=== PATIENT | male | born 2000 | race Two or more races ===

== ENCOUNTER 2021-10-09 16:10 | Emergency (ER) | payer BC ==
[2021-10-09] MEDS ORDERED: TETANUS & DIPHTHERIA TOX,ADULT 0.5 ML VIAL ONE (16:48)
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
[2021-10-09 18:37] VITALS: BP 123/68; O2SAT 98
[2021-10-09 18:39] VITALS: TEMP 98.6
== END 2021-10-09 17:51 | disposition home or self-care (01) ==
LOC: ER 16:10
DX: T23.421A Corrosion of unspecified degree of single right finger (nail) except thumb, initial encounter (principal); Z23 Encounter for immunization
CPT/HCPCS: 90471; 90714; 99283

== ENCOUNTER 2024-09-01 00:19 | Emergency (ER) | payer OTHER, BC ==
--- OUTSIDE RECORDS SUMMARY | 2024-09-01 00:22 | XMS REPORT | Continuity of Care Document ---
Author Name Unknown Address [address] [facility] [place]. [address] [place] [address] [facility] thconnect Address [address] [facility]. [address] [place] [address] Care Team Providers Care Packager And Strapper Name Role Phone PCP, PATIENT DOES NOT HAVE A Primary Care Physic remi Unavailable THOMAS BLANCO Attending Clinician Unavailab PRISCILLA Bryant Attending Clinician Unavailable Priscilla Tamez Attending Clinician [phone] ZULEIMA FORD Attending Clinician Unavailab Zuleima Kelley DO Attending Clinician [phone] Ginette Adam Attending Clinician Unavailable Radiology Attending Clinician Unavailable RADIOLOGY Attending Clinician Unavailable Physician, No Primary or Family Admitting Clinic remi Unavailable Payers Payer Name Policy Type Policy Number Effective Date Expirati on Date Source [employer] 2 [id number] 2023 00:00:00 CIG[employer] II [id number] 2021 00:00:00 Allergies, Adverse Reactions, Alerts Allergy Name Allergy Type Status Severity Reaction(s) Onset Date Inactive Date Treating Clinician Comments Source No Known Allergie s DA Active U 07-17 00:00: 00 [facility] NO KNOWN ALLERGIE S Drug Class Active [facility] Social History Social Habit Start Date Stop Date Quantity Comments Source Gender identity [facility] Sexual orientation U [facility] Exposure to SARS-CoV-2 (event) 2022-06-11 00:00:00 2022-06-21 10:12:00 Not sure [facility] Sex Assigned At 2000 00:00:00 2000 00:00:00 [facility] Smoking Status Start Date Stop Date Source Tobacco smoking consumption unknown [facility] Medications Ordered Medication Name Filled Medication Name Start Date Stop Date Current Medication? Ordering Clinician Indication Dosage Frequency Signature (SIG) Comments Components Source ondansetron (ZOFRAN-ODT ) disintegrat ing tablet 4 mg 06-09 15:15: 00 06-09 14:29 :00 No 4mg 4 mg, Oral, ONCE, 1 dose, On Fri06/09/23 at 1015, Routine [facility] penicillin g benzathine (BICILLIN L-A) injection 2.4 Million Units 06-09 14:30: 00 06-09 14:29 :00 No 2.410 2.4 Million Units, Intramuscu lar, ONCE, 1 dose, On Fri06/09/23 at 0930, IVORY
Re ason for Anti-Infec tive: Documented Infection< br>Documen heaven Infection Site: Pelvic
Duration of Therapy: 7 days [facility] ondansetron 4 mg disintegrat ing tablet 06-09 00:00: 00 Yes [id number] 4mg Take 1 tablet by mouth every 8 (eight) hours as needed for Nausea and Vomiting (N/V). [facility] ondansetron (ZOFRAN-ODT ) disintegrat ing tablet 4 mg 06-07 16:00: 00 06-07 15:13 :00 No 4mg 4 mg, Oral, ONCE, 1 dose, On 06/07/23 at 1100, Routine [facility] azithromyci n (ZITHROMAX) tablet 1,000 mg 06-07 15:15: 00 06-07 15:13 :00 No 1000mg 1,000 mg, Oral, ONCE, 1 dose, On 06/07/23 at 1015, IVORY
Re ason for Anti-Infec tive: Empiric Therapy for Suspected Infection< br>Empiric Therapy Site: Pelvic
Duration of therapy: 72 hours [facility] ondansetron 4 mg disintegrat ing tablet 06-07 00:00: 00 Yes [id number] 4mg Take 1 tablet by mouth every 8 (eight) hours as needed for Nausea and Vomiting (N/V). [facility] tc 99m-tetrofo smin (MYOVIEW) injection 4.8 millicurie 06-21 15:30: 00 06-21 15:28 :00 No [id number] 4.8mCi 4.8 millicurie , Intravenou s, ONCE, 1 dose, On Fri06/21/22 at 1030, Routine [facility] Vital Signs Vital Name Observation Time Observation Value Comments S ource Systolic blood pressure 2023-06-09 14:06:00 115 mm[Hg] [facility] Diastolic blood pressure 2023-06-09 14:06:00 89 mm[Hg] [facility] Heart rate 2023-06-09 14:06:00 94 /min [facility] Body temperature 2023-06-09 14:06:00 37.28 Jimena [facility] Respiratory rate 2023-06-09 14:06:00 14 /min [facility] Body height 2023-06-09 14:06:00 177.8 cm [facility] Body weight 2023-06-09 14:06:00 68.04 kg [facility] BMI 2023-06-09 14:06:00 21.52 kg/m2 [facility] Oxygen saturation in Arterial blood by Pulse oximetry 2023-06-09 14:06:00 100 /min [facility] Systolic blood pressure 2023-06-07 14:26:00 120 mm[Hg] [facility] Diastolic blood pressure 2023-06-07 14:26:00 78 mm[Hg] [facility] Heart rate 2023-06-07 14:26:00 100 /min [facility] Body temperature 2023-06-07 14:26:00 37.28 Jimena [facility] Respiratory rate 2023-06-07 14:26:00 16 /min [facility] Body weight 2023-06-07 14:26:00 68.04 kg [facility] Oxygen saturation in Arterial blood by Pulse oximetry 2023-06-07 14:26:00 99 /min [place] [facility] Procedures Procedure Date / Time Performed Performing Clinicia n Source CONSENT/REFUSAL FOR DIAGNOSIS AND TREATMENT 2023-06-09 13:58:19 Doctor Unassigned, [place] [facility] CONSENT/REFUSAL FOR DIAGNOSIS AND TREATMENT 2023-06-07 14:20:53 Doctor Unassigned, [place] [facility] NOTICE OF PRIVACY PRACTICES 2022-06-21 15:14:49 Doctor Unassigned, [place] [facility] CONSENT/REFUSAL FOR DIAGNOSIS AND TREATMENT 2022-06-21 15:14:16 Doctor Unassigned, [place] [facility] ASSIGNMENT OF BENEFITS 2022-06-21 15:13:57 Docto r Unassigned, [place] [facility] Encounters Start Date/Time End Date/Time Encounter Type Admission Type Attending [facility] Care Facility Care Department Encounter ID Source 2023-06-16 13:30:00 2023-06-16 13:30:00 Outpatient THOMAS BLANCO [id number] Keerthi Cohen 2023-06-09 09:07:00 2023-06-09 09:56:00 Emergency X PRISCILLA BURNS [facility] ERT [id number] [facility] 2023-06-09 09:07:00 2023-06-09 09:56:00 Emergency Priscilla Burns [facility] [id number] [facility] 2023-06-07 09:30:00 2023-06-07 11:10:00 Emergency X ZULEIMA FORD [facility] ERT [id number] [facility] 2023-06-07 09:30:00 2023-06-07 11:10:00 Emergency Zuleima Ford [facility] [id number] [facility] 2023-06-06 19:25:00 2023-06-06 22:10:00 Emergency EM Ginette Adam [facility] [id number] [address] [facility] 2022-06-21 10:13:13 2022-06-21 23:59:00 Hospital Encounter Radiology [facility] [id number] [facility] 2022-06-21 10:12:36 2022-06-21 10:12:00 Outpatient R [facility] [id number] [facility] 2022-06-21 10:00:00 2022-06-21 10:12:00 Hospital Encounter Radiology [facility] [id number] [facility] Results Test Description Test Time Test Comments Results Result Co mments Source Comment: urineBASIC METABOLIC [id number] 20:53:00* Test Item Value Reference Range Interpretation Comme nts SODIUM (test code = NA) 138 mmol/L 134-147 N POTASSIUM (test code = K) 3.9 mmol/L 3.4-5.0 N CHLORIDE (test code = CL) 106 mmol/L 100-108 N CARBON DIOXIDE (test code = CO2) 27 mmol/L 21-32 N ANION GAP (test code = GAP) 5.0 GAP calc 4.0-15.0 N GLUCOSE (test code = GLU) 87 MG/DL 70-110 N BLOOD UREA NITROGEN (test code = BUN) 11 MG/DL 7-18 N GLOMERULAR FILTRATION RATE (test code = GFR) >=60 max estimate estGFR >60 The Glomerular Filtration Rate is a calculated parameterbased on serum Creatinine, patient age and sex. GFR valuesless than 60 mL/min/1.73 square meters are indicative ofChronic Kidney Disease. Values less than 15 mL/min/1.73square meters indicate Kidney failure. The calculation forGFR is based on the CKD-EPI (202) calculation. This formulais race indifferent and is the recommended formula for GFRby the National Kidney Foundation for Adults.The GFR will not calculate if the sex is unknown or if thepatient's age is <18 years. CREATININE (test code = CREAT) 0.7 MG/DL 0.8-1.3 L CALCIUM (test code = CA) 9.1 MG/DL 8.5-10.1 N UA RFLX MICR CULT IF [id number] 20:46:00* Test Item Value Reference Range Interpretation Comme nts UA COLOR (test code = COLU) YELLOW discript YEL/STRAW UA APPEARANCE (test code = APPU) CLEAR discript CLEAR UA GLUCOSE DIPSTICK (test code = DGLUU) NEGATIVE mg/dL NEG UA BILIRUBIN DIPSTICK (test code = BILU) NEGATIVE mg/dL NEG UA KETONE DIPSTICK (test code = KETU) NEGATIVE mg/dL NEG UA SPECIFIC GRAVITY (test code = SGU) >=1.030 SG 1.005-1.030 A UA BLOOD DIPSTICK (test code = EDGAR) TRACE mg/DL NEG UA PH DIPSTICK (test code = WILLIAN) 6.0 pH UNITS 5.0-7.0 UA PROTEIN DIPSTICK (test code = PROU) NEGATIVE mg/dL NEG UA UROBILINIOGEN DIPSTICK (test code = URO) 0.2 mg/dL <2.0 UA NITRITE DIPSTICK (test code = GENO) NEGATIVE SCREEN NEG UA LEUKOCYTE ESTERASE DIPSTICK (test code = LEUU) NEGATIVE Leuk/mcL NEGATIVE Indication for culture: Dysuria/FrequencySOURCE OF URINE: MIDSTREAMCBC W/AUTO [id number] 20:37:00* Test Item Value Reference Range Interpretation Comme nts WHITE BLOOD CELL (test code = WBC) 9.0 K/mm3 3.5-11.0 N RED BLOOD CELL (test code = RBC) 4.63 M/mm3 4.70-6.10 L HEMOGLOBIN (test code = HGB) 14.7 G/DL 12.3-15.9 N HEMATOCRIT (test code = HCT) 43.3 % 35.8-46.7 N MEAN CELL VOLUME (test code = MCV) 93.5 Fl 86.3-98.9 N MEAN CELL HGB (test code = MCH) 31.7 pg 28.9-34.4 N MEAN CELL HGB CONCETRATION (test code = MCHC) 33.9 G/DL 32.1-34.5 N RED CELL DISTRIBUTION WIDTH (test code = RDW) 12.0 SD 11.5-14.5 N PLATELET COUNT (test code = PLT) 265 K/mm3 150-450 N MEAN PLATELET VOLUME (test c ode = MPV) 9.60 fL 7.0-9.6 N NEUTROPHIL % (test code = NT%) 60.8 % 40-76 N IMMATURE GRANULOCYTE % (test code = IG%) 0.2 % 0.0-5.0 N LYMPHOCYTE % (test code = LY%) 25.7 % 20.5-51.1 N MONOCYTE % (test code = MO%) 11.6 % 1.7-9.3 H EOSINOPHIL % (test code = EO%) 1.1 % 0.0-6.0 N BASOPHIL % (test code = BA%) 0.6 % 0.0-2.0 N NUCLEATED RBC % (test code = NRBC%) 0.0 /100WBC% 0.0-1.0 N NEUTROPHIL # (test code = NT#) 5.5 K/mm3 1.8-7.6 N IMMATURE GRANULOCYTE # (test code = IG#) 0.02 x10 3/uL 0.00-0.03 N LYMPHOCYTE # (test code = LY#) 2.3 K/mm3 0.6-3.0 N MONOCYTE # (test code = MO#) 1.0 K/mm3 0.2-1.5 N EOSINOPHIL # (test code = EO#) 0.1 K/mm3 0.0-0.4 N BASOPHIL # (test code = BA#) 0.1 K/mm3 0.0-0.2 N NUCLEATED RBC # (test code = NRBC#) 0.0 K/mm3 0.00-0.01 N MANUAL DIFF REQUIRED (test c ode = MDIFF) NO DIFF/SCN CRITERIA Notes Date/Time Note Provider Source 2023-06-09 09:55:15 Formatting of this n ote might be different from the original. Pt given printed and verbal discharge instructions regarding syphillis, encouraged hydration, Prescriptions provided Pt verbalized understanding of instructions, pt awake alert oriented, resp reg unlabored, skin w/d, color appropriate for race, moves all ext well,pt encouraged to follow up with pcp Advised to seek medical attention for new/prolonged/worsening of symptoms No adverse reaction to meds given in ER noted upon discharge Awake, alert oriented, resp reg unlabored, skin w/d, pt leaving amb with steady gait, in no apparent distress, Glynn Hung RN [facility] 2023-06-09 09:05:52 Formatting of this n ote might be different from the original. Needs shot for syphilis. Fabi Sharif RN [facility] 2023-06-07 11:08:23 Formatting of this n ote might be different from the original. Pt given printed and verbal discharge instructions regarding pelvic lymphadenopathy, encouraged hydration. Prescriptions provided. Pt verbalized understanding of instructions, pt awake alert oriented, resp reg unlabored, skin w/d, color appropriate for race, moves all ext well, pt encouraged to follow up with pcp. Advised to seek medical attention for new/prolonged/worsening of symptoms. Symptoms addressed. No adverse reaction to meds given in ER noted upon discharge. Pt leaving amb with steady gait, in no apparent distress. Left with mother. Sally Mir RN [facility] 2023-06-07 09:23:06 Formatting of this n ote might be different from the original. C/o vomiting "for months" states he has seen a GI Dr. States x2 weeks he has had lymph nodes in his groin, states he has been on 3 rounds of antibiotics for the lymph nodes. States he has "lesions and discharge" from his penis. States yesterday he was given a rocephin injection. Lisy Michelle RN [facility] 2023-06-06 20:14:00 [facility] ([facility]) EMERGENCY PROVIDER REPORT REPORT#:[id number] REPORT STATUS: Signed DATE:06/06/23 TIME:2013 PATIENT: ANDRE SUE UNIT #: [id number] ROOM/BED: : 98 AGE: 22 SEX: M PCP PHYS: No Primary or Family Physician SERVICE AUTHOR: Venkatesh Mcclendon AUTOMOTIVE PARTS ADVISOR * ALL edits or amendments must be made on the electronic/computer document * Venkatesh Mcclendon 06/06/23 2014: HPI- Male Free Text HPI Notes Free Text HPI Notes Patient presents to the ED with inguinal lymph node swelling bilaterally for 2 weeks. He was seen by PCP 2 weeks ago and placed on clinda due to possible cellulitis from a cut that he had a month ago. Patient finished clinda but sees no improvement. Started develop lesions on his penis 4 days ago. Denies pain with urination, blood in urine, penile discharge, testicular tenderness, testicular swelling. General Confirmed Patient Yes Initial Greet Date/Time 06/06/231930 Presentation Chief Complaint Inguinal swelling R, Inguinal swelling L Hx Obtained From Patient Onset Occurred Weeks ago Symptom Duration Since onset Progression since Onset Unchanged Caused by No trauma by history Location Abdomen lower Radiation No: Does not radiate. Exacerbated by Nothing Relieved by Nothing Risk- Male Risk Stratification Torsion Risk factors reviewed Review of Systems ROS Statements All systems rev neg except as marked. Focused Review of Systems Male Reports: Penile lesion. Denies: Dysuria, Flank pain, Hematuria, Incontinence, Nocturia, Penile discharge, Scrotal swelling, Testicular pain, Testicular swelling, Urinary frequency, Urinary urgency, Urination decreased, Urination increased. Additional Review of Systems Hematologic Reports: Adenopathy. Denies: Bleeding, Bruising, Petechiae. Past Medical History - Adult Stated Complaint SWOLLEN LYMPH NODES Allergies Coded Allergies: No Known Allergies (07/17/15) Additional Medical History wrist fracture Other Social History Local resident Physical Exam Vital Signs Vital Signs First Documented: Result Date Time Pulse Ox 98 06/06 1926 B/P 126/70 06/06 1926 B/P Mean 88 06/06 1926 O2 Delivery Room air 06/06 1926 Temp 37.6 06/06 1926 Pulse 92 06/06 1926 Resp 14 06/06 1926 Last Documented: Result Date Time Pulse Ox 98 06/06 2351 B/P 122/68 06/06 2351 B/P Mean 86 06/06 2351 O2 Delivery Room air 06/06 2351 Temp 37.6 06/06 2351 Pulse 88 06/06 2351 Resp 18 06/06 2351 Review of Vital Signs Reviewed Basic Physical Exam Basic PE GEN: Well appearing/NAD, HEAD: Atraumatic/NC, RESP: No resp distress, CV: Reg rate rhythm, ABD: Soft/non-tender, EXT: No gross abnormality, SKIN: No rashes, warm/dry, NEURO: alert oriented, NEURO: gross movement NL, PSYCH: NL thought content Focused PE Genitourinary General Mold Operator present Text/Dict Notes Palpable bilateral swelling lymph nodes. Not tender to palpation Testes/Epidid/Scrotum Negative: Testis tender R, Testis tender L. Penis Lesions present. Interpretation Diagnostics Lab Results Interpretation Results Laboratory Tests 06/06/23 2013: [Embedded Image Not Available] Laboratory Tests: 06/06 2013 Chemistry Sodium (134 - 147 mmol/L) 138 Potassium (3.4 - 5.0 mmol/L) 3.9 Chloride (100 - 108 mmol/L) 106 Carbon Dioxide (21 - 32 mmol/L) 27 Anion Gap (4.0 - 15.0 GAP calc) 5.0 BUN (7 - 18 MG/DL) 11 Creatinine (0.8 - 1.3 MG/DL) 0.7 L Glomerular Filtr Rate (>60 estGFR) >=60 max estimate Glucose (70 - 110 MG/DL) 87 Calcium (8.5 - 10.1 MG/DL) 9.1 Hematology WBC (3.5 - 11.0 K/mm3) 9.0 RBC (4.70 - 6.10 M/mm3) 4.63 L Hgb (12.3 - 15.9 G/DL) 14.7 Hct (35.8 - 46.7 %) 43.3 MCV (86.3 - 98.9 Fl) 93.5 MCH (28.9 - 34.4 pg) 31.7 MCHC (32.1 - 34.5 G/DL) 33.9 RDW (11.5 - 14.5 SD) 12.0 Plt Count (150 - 450 K/mm3) 265 MPV (7.0 - 9.6 fL) 9.60 Neut % (Auto) (40 - 76 %) 60.8 Lymph % (Auto) (20.5 - 51.1 %) 25.7 [place] % (Auto) (1.7 - 9.3 %) 11.6 H Eos % (Auto) (0.0 - 6.0 %) 1.1 Baso % (Auto) (0.0 - 2.0 %) 0.6 Neut # (Auto) (1.8 - 7.6 K/mm3) 5.5 Lymph # (Auto) (0.6 - 3.0 K/mm3) 2.3 [place] # (Auto) (0.2 - 1.5 K/mm3) 1.0 Eos # (Auto) (0.0 - 0.4 K/mm3) 0.1 Baso # (Auto) (0.0 - 0.2 K/mm3) 0.1 Abs Immat Gran (auto) (0.00 - 0.03 x10 3/uL) 0.02 Add Manual Diff (CRITERIA DIFF/SCN) NO Immature Gran % (0.0 - 5.0 %) 0.2 Nucleated RBC % (0.0 - 1.0 /100WBC%) 0.0 Urines Urine Color (YEL/STRAW discript) YELLOW Urine Appearance (CLEAR discript) CLEAR Urine pH (5.0 - 7.0 pH UNITS) 6.0 Ur Specific [place] (1.005 - 1.030 SG) >=1.030 H Urine Protein (NEG mg/dL) NEGATIVE Urine Glucose (UA) (NEG mg/dL) NEGATIVE Urine Ketones (NEG mg/dL) NEGATIVE Urine Blood (NEG mg/DL) TRACE Urine Nitrite (NEG SCREEN) NEGATIVE Urine Bilirubin (NEG mg/dL) NEGATIVE Urine Urobilinogen (<2.0 mg/dL) 0.2 Ur Leukocyte Esterase (NEGATIVE Leuk/mcL) NEGATIVE Lab Statement Laboratory studies reviewed and considered in the medical decision-making. Point of Care Testing Pulse Oximetry Pulse Ox % 98 On: Room air Interpretation Interpreted by me Re-Evaluation [facility] ED Course Time 2120 Patient Course Stable Medication(s) Ordered Medication(s) Ordered: Anti-Infective Agents Sig/Crystal Start time Last Medication Dose Route Stop Time Status Admin Ceftriaxone Sodium 500 MG X1ED STA 06/06 2109 DC 06/06 Lidocaine HCl 0 IM 06/06 Central Nervous System Agents Sig/Crystal Start time Last Medication Dose Route Stop Time Status Admin Acetaminophen 650 MG X1ED STA 06/06 193 CAN PO 06/06 1940 Rx Drug Regimen New Rx given Safety Concerns Patient is safe Differential Diagnosis Differential Diagnosis Abscess, Cellulitis, Cystitis, acute, Epididymitis, Epididymitis/orchitis, Inguinal hernia R, Inguinal hernia L, Sexually transmit disease, Testicular torsion R, Testicular torsion L, Urinary tract infection, Urolithiasis Findings/Social Determinants Presentation Acute Severity Evaluation Non life-threatening Diagnosis Appears Non-critical Social Concerns Access to follow-up care Patient Discharge Departure Vital Signs/Condition Vital Signs First Documented: Result Date Time Pulse Ox 98 06/06 1926 B/P 126/70 06/06 1926 B/P Mean 88 06/06 1926 O2 Delivery Room air 06/06 1926 Temp 37.6 06/06 1926 Pulse 92 06/06 1926 Resp 14 06/06 1926 Last Documented: Result Date Time Pulse Ox 98 06/06 2351 B/P 122/68 06/06 235 B/P Mean 86 06/06 235 O2 Delivery Room air 06/06 2351 Temp 37.6 06/06 235 Pulse 88 06/06 2351 Resp 18 06/06 2351 All vital signs available at the time of this entry have been reviewed. Condition Stable Clinical Impression Clinical Impression Primary Impression: Inguinal adenopathy Secondary Impressions: Penile lesion Disposition Decision Discharge )( Discharged to Home Yes )( Time 2118 )( Date 06/06/23 Discharge/Care Plan Counseled Regarding Diagnosis, Lab results, Prescriptions, Need for follow-up, When to return to ED (Auto) Prescriptions Current Visit Scripts DOXYCYCLINE HYCLATE (VIBRAMYCIN) 100 MG PO Q12H 7 Days #14 CAPS Patient Instructions Urethritis STI ED Additional Instructions Monitor results online for gonorrhea and chlamydia. Contact partner if positive. Abstain from intercourse until results are finalized. Please contact your local County office for other STI testing and treatment. 1) https://www.[facility] .gov/departments/health-depa [place] [address] [place]. [address] 2) https://www.[facility] .gov/government/departments/ jbossd-dut-epxep- services/mcvspvjh-eaxkpx-ilg vices/mkb-fyt-bjkcldh/hiv-st i-public [address] [facility], [address] [place] [address] [address] [place] [address] 3) [email or web address].[facility]/services/clinical/health-c enters [facility] [address] [place], [place] [address] tel: [phone] Discharge Note I have spoken with the patient and/or caregivers. I have explained the patient's condition, diagnoses and treatment plan based on the information available to me at this time. I have answered the patient's and/or caregiver's questions and addressed any concerns. The patient and/or caregivers have as good an understanding of the patient's diagnosis, condition and treatment plan as can be expected at this point. The vital signs have been stable. The patient's condition is stable and appropriate for discharge from the emergency department. The patient will pursue further outpatient evaluation with the primary care physician or other designated or consulting physician as outlined in the discharge instructions. The patient and/or caregivers are agreeable to this plan of care and follow-up instructions have been explained in detail. The patient and/or caregivers have received these instructions in written format and have expressed an understanding of the discharge instructions. The patient and/or caregivers are aware that any significant change in condition or worsening of symptoms should prompt an immediate return to this or the closest emergency department or a call to 911. Ginette Adam 06/07/23 0341: Patient Discharge Departure Supervising Physician Note MidLv/Doc Saw Pt 1 I have personally seen the patient and I evaluated the patient along with involvement of the PA/AUTOMOTIVE PARTS ADVISOR. I agree with the PA/cooker meal findings and plan. I have performed all aspects of MDM as documented including: evaluation of the patient/ patient's condition(s), review and analysis of available data, and determination of risk of patient management decisions. at 0107 at 0341 RPT #: [id number] END OF REPORT HCAPM
[2024-09-01] MEDS ORDERED: KETOROLAC 30 MG/ML INJ ONE (01:37)
[2024-09-01] MEDS ORDERED: MORPHINE 4 MG/ML SYR ONE (01:37)
[2024-09-01] MEDS ORDERED: ONDANSETRON 4 MG/2 ML VIAL ONE (01:37)
[2024-09-01] MEDS ORDERED: MORPHINE 2 MG/ML SYR ONE (01:38)
[2024-09-01] MEDS ORDERED: NA CHLORIDE 0.9% 1,000 ML ONE (01:38)
[2024-09-01 01:59] LABS: Absolute Basophils 0.1 K/uL (0-0.5); Absolute Lymphocytes (CBC) 1.8 K/uL (0.7-4.9); Absolute Neutrophil 13.4 K/uL (1.8-8.0); Basophils % 0.4 % (0-1.3); Eosinophils % 0.2 % (0-4.4); Hematocrit 43.7 % (39.6-49.0); Hemoglobin 14.9 g/dL (13.6-17.9); Lymphocytes % 11.4 % (15.3-44.8); MCH 32.5 pg (27.0-35.0); MCV 95.5 fL (80-100); MPV 8.4 fL (7.6-11.3); Monocytes % 5.9 % (3.3-12.3); Neutrophils % 82.1 % (41.7-73.7); Platelets 250 thou/uL (152-406); RBC Red Blood Cell Count 4.58 M/uL (4.33-5.43); Red Cell Distribution Width 12.2 % (12.1-15.2)
[2024-09-01 02:02] LABS: Anion Gap 9.3 mEq/L (5.0-15.0); Potassium 3.3 mEq/L (3.5-5.1)
--- NOTE | 2024-09-01 02:26 | RAD REPORT ---
EXAM DESCRIPTION: Head C Spine Mpr Wo Con CLINICAL HISTORY: head injury COMPARISON: None available TECHNIQUE: Axial CT of the head obtained from the skull apex to the skull base without contrast. Axia l CT images of the cervical spine obtained without contrast. This exam was performed according to our departmental dose-optimization program, which includes automated exposure control, adjustment of the mA and/or kV according to patient size and/or use of iterative reconstruction technique. FINDINGS: Head CT: No acute intracranial hemorrhage identified. No mass, mass effect, shift of the midline, abnormal ext ra-axial fluid collection or CT evidence of acute ischemic change identified. The ventricular system is unremarkable. No acute abnormalities of the supratentorial white matter, basal ganglia, c erebellum, or brainstem. The visualized paranasal sinuses and the mastoids are relatively well aerated. No skull fracture id entified. Visualized orbits and globes are unremarkable. Cervical CT : Straightening of the cervical lordosis may be secondary to patient positioning. The atlantoaxial, a tlantodental, and occipitoatlantal intervals are preserved. No fracture identified. Vertebral body height preserved. Prevertebral soft tissues are unremarkable. Intervertebral disc height preserved. Visualized skull base is intact. Visualized mastoid air cells and paranasal sinuses are well aerat ed. Visualized thyroid is unremarkable. No cervical lymphadenopathy. No pneumothorax in the visualized lung apices. IMPRESSION: 1. No acute intracranial abnormality identified. 2. No acute fracture or subluxation of the cervical spine. Electronically signed by: Magdaleno Darden DO 09/01/2024 02:[address] [facility] [id number] Due to temporary technical issues with the PACS/Clearwave reporting system, reports are being randi d by the in-house radiologist without review as a courtesy to ensure prompt reporting the interpreting radiologist is fully responsible for the content of the report. Transcribed Date/Time: 09/01/2024 2:25 AM
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
--- NOTE | 2024-09-01 06:04 | RAD REPORT ---
EXAM: XR FOOT 3 OR MORE VIEWS LEFT CLINICAL DATA: 24 years Male left foot pain TECHNICAL DATA: Three x-ray views of the left foot were performed on 09/01/2024 at 1:21 AM. COMPARISONS: None FINDINGS: There is no evidence of fracture or dislocation. There is no significant arthritis or degenerative ch berry. No focal lytic or sclerotic bone lesions are seen. Bone mineralization is normal. No focal soft tissue abnormalities are identified. IMPRESSION: No evidence of acute osseous injury involving the left foot. Electronically signed by: Savanah Vega DO 09/01/2024 02:36 AM [facility] Due to temporary technical issues with the PACS/vogogo reporting system, reports are being randi d by the in-house radiologist without review as a courtesy to ensure prompt reporting the interpreting radiologist is fully responsible for the content of the report. Transcribed Date/Time: 09/01/2024 6:04 AM
--- NOTE | 2024-09-01 06:04 | RAD REPORT ---
EXAM: XR Left Wrist Complete, 3 or More Views CLINICAL HISTORY: The patient is 24 years old and is Male; PAIN TECHNIQUE: Frontal, lateral and oblique views of the left wrist. COMPARISON: No relevant prior studies available. FINDINGS: BONES/JOINTS: Separate ossification center or the radial styloid is present, unfused. No acute fr acture. No dislocation. SOFT TISSUES: Unremarkable. No radiopaque foreign body. IMPRESSION: Normal left wrist radiographs. Electronically signed by: Carmen Fleming MD 09/01/2024 02:35 AM [facility] Due to temporary technical issues with the PACS/[facility] reporting system, reports are being randi d by the in-house radiologist without review as a courtesy to ensure prompt reporting the interpreting radiologist is fully responsible for the content of the report. Transcribed Date/Time: 09/01/2024 6:04 AM
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
[2024-09-01] MEDS ORDERED: HYDROCODONE/APAP 10/325 TAB ONE (06:16)
[2024-09-01] MEDS ORDERED: methocarbamoL 750 MG TAB ONE (06:16)
[2024-09-01] MEDS ORDERED: IBUPROFEN 400 MG TAB ONE (06:16)
[2024-09-01] MEDS ORDERED: LIDOCAINE 1% 20 ML MDV ONE (06:17)
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
[2024-09-01 08:39] VITALS: BP 117/72; O2SAT 100
== END 2024-09-01 08:30 | disposition home or self-care (01) ==
LOC: ER 00:19
DX: S81.812A Laceration without foreign body, left lower leg, initial encounter (principal); S63.502A Unspecified sprain of left wrist, initial encounter; S93.402A Sprain of unspecified ligament of left ankle, initial encounter; S20.212A Contusion of left front wall of thorax, initial encounter; S50.02XA Contusion of left elbow, initial encounter; S80.12XA Contusion of left lower leg, initial encounter; S50.312A Abrasion of left elbow, initial encounter; S60.812A Abrasion of left wrist, initial encounter; V28.09XA Other motorcycle driver injured in noncollision transport accident in nontraffic accident, initial encounter
CPT/HCPCS: 85025; 80048; 36415; 86900; 86850; 86901; 70450; 72125; 71260; 74177; 73630; 73080; 73110; 73590; 12002; Q9967; J2003; J2270; J2405; J7030

== ENCOUNTER 2024-09-19 18:18 | Emergency (ER) | payer OTHER, BC ==
--- OUTSIDE RECORDS SUMMARY | 2024-09-19 18:21 | XMS REPORT | Continuity of Care Document ---
Author Name Unknown Address [address] [facility] [address] [place] [address] [facility] thconnect Address [address] [facility] [place] [address] Care Team Providers Care Decommissioning Well Site Manager Name Role Phone PCP, PATIENT DOES NOT HAVE A Primary Care Physic remi Unavailable THOMAS BLANCO Attending Clinician Unavailab PRISCILLA Bryant Attending Clinician Unavailable Priscilla Tamez Attending Clinician [phone] ZULEIMA FORD Attending Clinician Unavailab Zuleima Kelley DO Attending Clinician [phone] Ginette Adam Attending Clinician Unavailable Radiology Attending Clinician Unavailable RADIOLOGY Attending Clinician Unavailable Physician, No Primary or Family Admitting Clinic remi Unavailable Payers Payer Name Policy Type Policy Number Effective Date Expirati on Date Source [employer] 2 [id number] 2023 00:00:00 [employer] II [id number] 2021 00:00:00 Allergies, Adverse Reactions, Alerts Allergy Name Allergy Type Status Severity Reaction(s) Onset Date Inactive Date Treating Clinician Comments Source No Known Allergie s DA Active U 07-17 00:00: 00 [facility] NO KNOWN ALLERGIE S Drug Class Active [facility] Social History Social Habit Start Date Stop Date Quantity Comments Source Gender identity [facility] Exposure to SARS-CoV-2 (event) 2022-06-11 00:00:00 2022-06-21 10:12:00 Not sure [facility] Sex Assigned At 2000 00:00:00 2000 00:00:00 [facility] Smoking Status Start Date Stop Date Source Tobacco smoking consumption unknown [facility] Medications Ordered Medication Name Filled Medication Name Start Date Stop Date Current Medication? Ordering Clinician Indication Dosage Frequency Signature (SIG) Comments Components Source ondansetron (ZOFRAN-ODT ) disintegrat ing tablet 4 mg 06-09 15:15: 00 06-09 14:29 :00 No 4mg 4 mg, Oral, ONCE, 1 dose, On Fri06/09/23 at 1015, Routine [facility] penicillin g benzathine (BICILLIN L-A) injection 2.4 Million Units 06-09 14:30: 00 06-09 14:29 :00 No 2.410 2.4 Million Units, Intramuscu lar, ONCE, 1 dose, On Fri06/09/23 at 0930, IVORY
Re ason for Anti-Infec tive: Documented Infection< br>Documen heaven Infection Site: Pelvic
Duration of Therapy: 7 days [facility] ondansetron 4 mg disintegrat ing tablet 06-09 00:00: 00 Yes [id number] 4mg Take 1 tablet by mouth every 8 (eight) hours as needed for Nausea and Vomiting (N/V). [facility] ondansetron (ZOFRAN-ODT ) disintegrat ing tablet 4 mg 06-07 16:00: 00 06-07 15:13 :00 No 4mg 4 mg, Oral, ONCE, 1 dose, On 06/07/23 at 1100, Routine [facility] azithromyci n (ZITHROMAX) tablet 1,000 mg 06-07 15:15: 00 06-07 15:13 :00 No 1000mg 1,000 mg, Oral, ONCE, 1 dose, On 06/07/23 at 1015, IVORY
Re ason for Anti-Infec tive: Empiric Therapy for Suspected Infection< br>Empiric Therapy Site: Pelvic
Duration of therapy: 72 hours [facility] ondansetron 4 mg disintegrat ing tablet 06-07 00:00: 00 Yes [id number] 4mg Take 1 tablet by mouth every 8 (eight) hours as needed for Nausea and Vomiting (N/V). [facility] tc 99m-tetrofo smin (MYOVIEW) injection 4.8 millicurie 06-21 15:30: 00 06-21 15:28 :00 No [id number] 4.8mCi 4.8 millicurie , Intravenou s, ONCE, 1 dose, On Fri06/21/22 at 1030, Routine [facility] Vital Signs Vital Name Observation Time Observation Value Comments S ource Systolic blood pressure 2023-06-09 14:06:00 115 mm[Hg] [facility] Diastolic blood pressure 2023-06-09 14:06:00 89 mm[Hg] [facility] Heart rate 2023-06-09 14:06:00 94 /min [facility] Body temperature 2023-06-09 14:06:00 37.28 Jimena [facility] Respiratory rate 2023-06-09 14:06:00 14 /min [facility] Body height 2023-06-09 14:06:00 177.8 cm [facility] Body weight 2023-06-09 14:06:00 68.04 kg [facility] BMI 2023-06-09 14:06:00 21.52 kg/m2 [facility] Oxygen saturation in Arterial blood by Pulse oximetry 2023-06-09 14:06:00 100 /min [facility] Systolic blood pressure 2023-06-07 14:26:00 120 mm[Hg] [facility] Diastolic blood pressure 2023-06-07 14:26:00 78 mm[Hg] [facility] Heart rate 2023-06-07 14:26:00 100 /min [facility] Body temperature 2023-06-07 14:26:00 37.28 Jimena [facility] Respiratory rate 2023-06-07 14:26:00 16 /min [facility] Body weight 2023-06-07 14:26:00 68.04 kg [facility] Oxygen saturation in Arterial blood by Pulse oximetry 2023-06-07 14:26:00 99 /min [place] [facility] Procedures Procedure Date / Time Performed Performing Clinicia n Source CONSENT/REFUSAL FOR DIAGNOSIS AND TREATMENT 2023-06-09 13:58:19 Doctor Unassigned, [place] [facility] CONSENT/REFUSAL FOR DIAGNOSIS AND TREATMENT 2023-06-07 14:20:53 Doctor Unassigned, [place] [facility] NOTICE OF PRIVACY PRACTICES 2022-06-21 15:14:49 Doctor Unassigned, [place] [facility] CONSENT/REFUSAL FOR DIAGNOSIS AND TREATMENT 2022-06-21 15:14:16 Doctor Unassigned, [place] [facility] ASSIGNMENT OF BENEFITS 2022-06-21 15:13:57 Docto r Unassigned, [place] [facility] Encounters Start Date/Time End Date/Time Encounter Type Admission Type Attending [facility] Care Facility Care Department Encounter ID Source 2023-06-16 13:30:00 2023-06-16 13:30:00 Outpatient THOMAS BLANCO [id number] Keerthi Cohen 2023-06-09 09:07:00 2023-06-09 09:56:00 Emergency X PRISCILLA BURNS [facility] E[facility] [id number] [facility] 2023-06-09 09:07:00 2023-06-09 09:56:00 Emergency Priscilla Burns [facility] [id number] [facility] 2023-06-07 09:30:00 2023-06-07 11:10:00 Emergency X ZULEIMA FORD [facility] ERT [id number] [facility] 2023-06-07 09:30:00 2023-06-07 11:10:00 Emergency Zuleima Ford [facility] [id number] [facility] 2023-06-06 19:25:00 2023-06-06 22:10:00 Emergency EM Ginette Adam [facility] [id number] [address] [facility] 2022-06-21 10:13:13 2022-06-21 23:59:00 Hospital Encounter Radiology [facility] [id number] [facility] 2022-06-21 10:12:36 2022-06-21 10:12:00 Outpatient R RADIOLOGY [facility] [id number] [facility] 2022-06-21 10:00:00 2022-06-21 10:12:00 Hospital Encounter Radiology [facility] [id number] [facility] Results Test Description Test Time Test Comments Results Result Co mments Source Comment: urineBASIC METABOLIC [id number] 20:53:00* Test Item Value Reference Range Interpretation [...] 8.5-10.1 N UA RFLX MICR CULT IF [id number] 20:46:00* Test Item Value Reference Range Interpretation [...] for culture: Dysuria/FrequencySOURCE OF URINE: MIDSTREAMCBC W/AUTO [id number] 20:37:00* Test Item Value Reference Range Interpretation [...] in no apparent distress, Glynn Hung RN [facility] 2023-06-09 09:05:52 Formatting of this n ote might be different from the original. Needs shot for syphilis. Fabi Sharif RN [facility] 2023-06-07 11:08:23 Formatting of this n [...] distress. Left with mother. Sally Mir RN [facility] 2023-06-07 09:23:06 Formatting of this n [...] given a rocephin injection. Lisy Michelle RN [facility] 2023-06-06 20:14:00 [facility] ([facility]) EMERGENCY PROVIDER REPORT REPORT#:[id number] REPORT STATUS: Signed DATE:06/06/23 TIME:2013 PATIENT: ANDRE SUE UNIT #: [id number] ROOM/BED: : 98 AGE: 22 SEX: M PCP PHYS: No Primary or Family Physician SERVICE AUTHOR: Venkatesh Mcclendon [employer] * ALL edits or amendments must be [...] NL thought content Focused PE Genitourinary General Customer Services Coordinator present Text/Dict Notes Palpable bilateral swelling lymph [...] % (Auto) (20.5 - 51.1 %) 25.7 [place] % (Auto) (1.7 - 9.3 %) 11.6 H Eos % (Auto) (0.0 - 6.0 %) 1.1 Baso % (Auto) (0.0 - 2.0 %) 0.6 Neut # (Auto) (1.8 - 7.6 K/mm3) 5.5 Lymph # (Auto) (0.6 - 3.0 K/mm3) 2.3 [place] # (Auto) (0.2 - 1.5 K/mm3) 1.0 [...] - 7.0 pH UNITS) 6.0 Ur Specific [place] (1.005 - 1.030 SG) >=1.030 H Urine [...] Room air Interpretation Interpreted by me Re-Evaluation [facility] ED Course Time 2120 Patient Course Stable [...] Result Date Time Pulse Ox 98 06/06 235 B/P 122/68 06/06 2351 B/P Mean 86 06/06 235 O2 Delivery Room air 06/06 2351 Temp 37.6 06/06 235 Pulse 88 06/06 235 Resp 18 06/06 2351 All vital signs [...] for other STI testing and treatment. 1) https://www.[facility] .gov/departments/health[place] [address] [place]. [address] 2) https://www.[facility] .gov/government/departments/ rxlavq-kfy-iapde- services/usmqfcch-whroai-jmz vices/lli-tog-imozbfq/hiv-st i-public [address] [facility], [address] [place] [address] [address] [place] [address] 3) https://www.[facility]/services/clinical/health-c enters [facility] [address] [place], [place] [address] tel: [phone] Discharge Note I have spoken with the [...] the patient along with involvement of the PA/[employer]. I agree with the PA/clay machine operator findings and plan. I have performed all aspects of MDM as documented including: evaluation of the patient/ patient's condition(s), review and analysis of available data, and determination of risk of patient management decisions. at 0107 at 0341 RPT #: [id number] END OF REPORT HCAPM
[2024-09-19] MEDS ORDERED: LIDOCAINE HCL JELLY 2% 6 ML SYRINGE TOP ONE (20:13)
--- NOTE | 2024-09-19 20:53 | ER ---
Nurse's Notes [facility] Name: Greg Esteves Age: 24 yrs Sex: Male : 2000 Arrival Date: 09/19/2024 Time: 18:18 Bed 12 Private MD: Diagnosis: Encounter for removal of sutures Presentation: 09/19 19:16 Chief complaint: Patient states: stitches to left madison placed 18 days ago here. i think lg3 its time for them to come out. Coronavirus screen: Client denies travel out of the [place] in the last 14 days. At this time, the client does not indicate any symptoms associated with coronavirus-19. Ebola Screen: No symptoms or risks identified at this time. Initial Sepsis Screen: Does the patient meet any 2 criteria? No. Patient's initial sepsis screen is negative. Does the patient have a suspected source of infection? No. Patient's initial sepsis screen is negative. Risk Assessment: Do you want to hurt yourself or someone else? Patient reports no desire to harm self or others. Onset of symptoms is unknown. 19:16 Method Of Arrival: Wheelchair lg3 19:16 Acuity: NORTH 5 lg3 Triage Assessment: 19:19 General: Appears in no apparent distress. comfortable, Behavior is calm, cooperative. lg3 Pain: Denies pain. EENT: No deficits noted. No signs and/or symptoms were reported regarding the EENT system. Neuro: No deficits noted. Mcgowan Agitation-Sedation Scale (RASS): 0 - Alert and Calm Level of Consciousness is awake, alert, obeys commands, Oriented to person, place, time, situation. Cardiovascular: No deficits noted. Denies chest pain, shortness of breath, Capillary refill < 3 seconds Clubbing of nail beds is absent JVD is absent Patient's skin is warm and dry. Respiratory: No deficits noted. Airway is patent Respiratory effort is even, unlabored, Respiratory pattern is regular, symmetrical. GI: No deficits noted. : No signs and/or symptoms were reported regarding the genitourinary system. Derm: Skin is intact, is healthy with good turgor, Skin is dry, Skin is normal, Skin temperature is warm sutures noted to left madison/ lower knee. Musculoskeletal: No deficits noted. No signs and/or symptoms reported regarding the musculoskeletal system. Circulation, motion, and sensation intact. Range of motion: intact in all extremities. Historical: - Allergies: 19:19 No Known Allergies; lg3 - Home Meds: 19:19 Klonopin Oral [Active]; lg3 - PMHx: 19:19 Anxiety; lg3 - PSHx: 19:19 None; lg3 - Immunization history:: Adult Immunizations up to date. - Infectious Disease History:: Denies. - Social history:: Smoking status: Reported history of juuling and/or vaping. Patient uses street drugs, marijuana, Patient/guardian denies using alcohol. Screenin:22 [facility] ED Fall Risk Assessment (Adult) History of falling in the last 3 months, lg3 including since admission No falls in past 3 months (0 pts) Confusion or Disorientation No (0 pts) Intoxicated or Sedated No (0 pts) Impaired Gait No (0 pts) Mobility Assist Device Used No (0 pt) Altered Elimination No (0 pt) Score/Fall Risk Level 0 - 2 = Low Risk Oriented to surroundings, Maintained a safe environment, Educated pt \T\ family on fall prevention, incl call for assistance when getting out of bed, Assessed \T\ reinforced patient's understanding of fall precautions. Abuse screen: Denies threats or abuse. Denies injuries from another. Nutritional screening: No deficits noted. Tuberculosis screening: No symptoms or risk factors identified. Assessment: 19:22 General: see triage assessment. lg3 21:29 Reassessment: Patient appears in no apparent distress at this time. No changes from lg3 previously documented assessment. Patient and/or family updated on plan of care and expected duration. Pain level reassessed. Patient is alert, oriented x 3, equal unlabored respirations, skin warm/dry/pink. Vital Signs: 19:16 BP 133 / 86; Pulse 75; Resp 17 S; Temp 97.8(O); Pulse Ox 100% on R/A; Weight 65.77 kg lg3 (R); Height 5 ft. 10 in. (R); 21:31 BP 127 / 88; Pulse 71; Resp 17 S; Temp 97.4; Pulse Ox 100% on R/A; lg3 19:16 Body Mass Index 20.81 (65.77 kg, 177.8 cm) lg3 ED Course: 18:20 Patient arrived in ED. mr 18:22 Rasheed Negron PA is PHCP. cp 18:22 Rasheed Ramirez MD is Attending Physician. cp 19:19 Triage completed. lg3 19:19 Arm band placed on right wrist. lg3 19:22 Patient has correct armband on for positive identification. lg3 19:23 Bed in low position. Call light in reach. Side rails up X 1. Client placed on lg3 continuous cardiac and pulse oximetry monitoring. NIBP monitoring applied. Door closed. Noise minimized. Warm blanket given. Pillow given. Family accompanied patient. 21:30 No provider procedures requiring assistance completed. Patient did not have IV access lg3 during this emergency room visit. Recheck. Removal of Removed sutures from left madison Suture site is well healed Patient tolerated well. Wound care: to healed laceration located on left madison was cleaned with soap and water, dressed with Neosporin, Kerlix, Patient tolerated well. Administered Medications: 20:19 Drug: Lidocaine Mucous Membrane Gel 2 % 1 ea 15 ml Mucous Membrane once; apply to lg3 sutures please Volume: 15 ml; Route: Mucous Membrane; 21:32 Follow up: Response: No adverse reaction lg3 Medication: 19:22 VIS not applicable for this client. lg3 Outcome: 20:52 Discharge ordered by MD. cp 21:32 Discharged to home ambulatory, with family, lg3 21:32 Condition: stable 21:32 Discharge instructions given to patient, Instructed on discharge instructions, follow up and referral plans. wound care, Demonstrated understanding of instructions, follow-up care, wound care, 21:32 Patient left the ED. lg3 Signatures: Alessia Mir, Reg Reg mr Rasheed Negron PA PA cp Able, Lacie, RN RN lg3
--- NOTE | 2024-09-19 20:53 | EDPHYS ---
Physician Documentation [facility] Name: Greg Esteves Age: 24 yrs Sex: Male : 2000 Arrival Date: 09/19/2024 Time: 18:18 Bed 12 Private MD: aRsheed Tucker HPI: 09/19 19:35 This 24 yrs old Male presents to ER via Wheelchair with complaints of Suture Removal. cp 19:35 The patient has The patient has sutures on the left lower leg. cp 19:35 Previous treatment: The patient was initially treated 18 days ago, the care was cp rendered at [facility], Treatment type: The patient's original treatment included sutures. Sutures/brian progress: The patient has no c/o's. The wound is well-healing with no redness, swelling, discharge, or dehiscence reported. Historical: - Allergies: 19:19 No Known Allergies; lg3 - Home Meds: 19:19 Klonopin Oral [Active]; lg3 - PMHx: 19:19 Anxiety; lg3 - PSHx: 19:19 None; lg3 - Immunization history:: Adult Immunizations up to date. - Infectious Disease History:: Denies. - Social history:: Smoking status: Reported history of juuling and/or vaping. Patient uses street drugs, marijuana, Patient/guardian denies using alcohol. ROS: 19:40 Constitutional: HX per HPI cp 19:40 Skin: Positive for of the left lower leg, repaired laceration with sutures, cp 19:40 All other systems are negative, Exam: 19:45 Constitutional: The patient appears in no acute distress, alert, awake, non-toxic, well cp developed, well nourished, uncomfortable, 19:45 Head/Face: Normocephalic, atraumatic. cp 19:45 Skin: repaired lacerations noted to anterior left lower leg appear to be healed with no dehiscence, no swelling, no erythema and no drainage. [address] Vital Signs: 19:16 BP 133 / 86; Pulse 75; Resp 17 S; Temp 97.8(O); Pulse Ox 100% on R/A; Weight 65.77 kg lg3 (R); Height 5 ft. 10 in. (R); 21:31 BP 127 / 88; Pulse 71; Resp 17 S; Temp 97.4; Pulse Ox 100% on R/A; lg3 19:16 Body Mass Index 20.81 (65.77 kg, 177.8 cm) lg3 Procedures: 20:50 Suture/Staple removal: Removed 8 sutures, from left lower leg, site appears well cp healed, dressed with bacitracin. Patient tolerated well. MDM: 19:31 Medical Screening Exam initiated cp 20:51 Data reviewed: vital signs, nurses notes, and as a result, I will discharge patient. cp 20:51 Counseling: I had a detailed discussion with the patient and/or guardian regarding the cp historical points, exam findings, and any diagnostic results supporting the discharge/admit diagnosis, to return to the emergency department if symptoms worsen or persist or if there are any questions or concerns that arise at home. Response to treatment: the patient's symptoms have markedly improved after treatment, and as a result, I will discharge patient. 09/19 20:50 Order name: Wound dressing; Complete Time: 21:32 cp Administered Medications: 20:19 Drug: Lidocaine Mucous Membrane Gel 2 % 1 ea 15 ml Mucous Membrane once; apply to lg3 sutures please Volume: 15 ml; Route: Mucous Membrane; 21:32 Follow up: Response: No adverse reaction lg3 Disposition Summary: 09/19/24 20:52 Discharge Ordered Notes: Location: Home cp Problem: new cp Symptoms: have improved cp Condition: Stable cp Diagnosis - Encounter for removal of sutures cp Followup: cp - With: Private Physician - When: 2 - 3 days - Reason: Worsening of condition Discharge Instructions: - Discharge Summary Sheet cp - How to Change Your Wound Dressing cp - Suture Removal, Care After cp Forms: - Medication Reconciliation Form cp - Antibiotic Education cp - Prescription Opioid Use cp - Patient Portal Instructions cp - Leadership Thank You Letter cp Signatures: Rasheed Negron PA PA cp Able, Lacie, RN RN lg3 Corrections: (The following items were deleted from the chart) 09/20 20:41 09/19 19:35 The patient has cp cp
[2024-09-20 01:55] VITALS: O2SAT 100
[2024-09-20 01:56] VITALS: BP 127/88; TEMP 97.4
== END 2024-09-19 21:32 | disposition home or self-care (01) ==
LOC: ER 18:18
DX: Z48.02 Encounter for removal of sutures (principal)
CPT/HCPCS: 99284